=== PATIENT | male | born 1975 | race Caucasian/White ===

== ENCOUNTER 2017-08-26 13:35 | Emergency (ER) | payer BC ==
[~2017-08-26] VITALS: Ht 177.8 cm; Wt 90.0 kg
[~2017-08-26 13:35] MED LIST: AMOXICILLIN500 MG OR; AMOXIL500 MG OR; HYDROCHLOROT12.5 M1 OR; LISINOP/HCTZ1 TA1 PO; LISINOPRIL20 MG OR; LOVASTATIN10 M1 OR; VICOPROFEN OR
[2017-08-26] MEDS ORDERED: LISINOPRIL20 MG PO (14:14)
[2017-08-26] MEDS ORDERED: LIPITOR20 MG PO (14:14)
[2017-08-26 14:25] LABS: HEMATOCRIT 48.8 % (39.0-50.0); HEMOGLOBIN 16.8 g/dl (14.0-18.0); IMMATURE GRANULOCYTES 0.3 % (0.0-1.0); MEAN CELL VOLUME 90.5 fL CALC (80.0-100.0); MEAN CORPUSCULAR HGB 31.2 pG CALC (26.0-32.0); MEAN CORPUSCULAR HGB CONC 34.4 g/L CALC (32.0-36.0); NEUT# 8.06 thou/uL (1.82-7.42); RED BLOOD COUNT 5.39 mill/uL (4.70-6.10); RED CELL DISTRI WIDTH 12.3 % (11.5-15.5)
[2017-08-26 15:01] LABS: ALBUMIN 4.7 g/dL (3.2-5.0); ALKALINE PHOSPHATASE 89 u/l (38-126); ANION GAP 17 (6-22 (CALC)); BILIRUBIN, TOTAL 0.7 mg/dL (0.0-1.4); BUN 22 mg/dL (9-20); BUN/CREATININE RATIO 25 (12-20 (CALC)); CARBON DIOXIDE 20 mmol/l (22-30); CHLORIDE 107 mmol/l (95-108); CREATININE 0.9 mg/dL (0.7-1.3); GFR > 60 ML/MIN (>=60 (CALC)); GFR FOR AFR.AMER. > 60 ML/MIN (>=60 (CALC)); LIPASE 63 u/l (23-300); MAGNESIUM 2.2 mg/dL (1.6-2.3); POTASSIUM 4.4 mmol/l (3.5-5.1); SGOT/AST 34 u/l (17-59); SGPT/ALT 74 u/l (21-72); SODIUM 140 mmol/l (137-146); TOTAL PROTEIN 8.1 g/dL (6.3-8.2)
[2017-08-26 15:58] LABS: URINE BLOOD DIPSTICK NEGATIVE (NEGATIVE); URINE COLOR YELLOW; URINE GLUCOSE - DIPSTICK NEGATIVE (NEGATIVE); URINE KETONE 15 mg/dL (NEGATIVE); URINE LEUK ESTERASE NEGATIVE (NEGATIVE); URINE NITRITE - DIPSTICK NEGATIVE (Negative); URINE PH 5.5 (4.5-8.0); URINE PROTEIN - DIPSTICK TRACE mg/dL (NEG-TRACE); URINE SPECIFIC GRAVITY >=1.030; URINE UROBILINOGEN - DIPSTICK 0.2 E.U./dL (0.2)
[2017-08-26 16:02] LABS: URINE BILIRUBIN - DIPSTICK SMALL (NEGATIVE); URINE CLARITY CLEAR
[2017-08-26] MEDS ORDERED: RANITIDINE150 M1 PO (16:33)
[2017-08-26 16:48] VITALS: BP 131/84
== END 2017-08-26 16:48 | disposition home or self-care (01) | DRG 392 ==
LOC: ED 13:35
PROVIDERS: Family Medicine
DX: R10.13 Epigastric pain (principal); I10 Essential (primary) hypertension; F17.210 Nicotine dependence, cigarettes, uncomplicated
CPT/HCPCS: Q9967